=== PATIENT | female | born 1970 | race Caucasian/White ===

== ENCOUNTER 2017-09-28 13:54 | Emergency (ER) | payer OTHER ==
[2017-09-28] MEDS: HYDROcodone/APAP 5/325MG 1 TAB TABLET PO (16:21)
[2017-09-28] MEDS: hydrOXYzine PAMOATE 25 MG CAPSULE PO (16:22)
[2017-09-28 16:40] LABS: ADD MAN DIFF? NO
[2017-09-28 16:42] LABS: BASO % 0 % (0-3); EOS # 0.5 x10^3/uL (0.0-0.7); EOS % 6 % (0-3); HEMATOCRIT 42.2 % (36.0-47.0); HEMOGLOBIN 14.3 g/dL (12.0-15.5); LYMPH # 1.9 x10^3/uL (1.0-4.8); LYMPH % 22 % (24-48); MEAN CORPUSCULAR HEMOGLOBIN 31 pg (25-35); MEAN CORPUSCULAR HGB CONC 34 g/dL (31-37); MEAN CORPUSCULAR VOLUME 91 fL (79-100); MONO # 0.7 x10^3/uL (0.0-1.1); MONO % 9 % (0-9); NEUT # 5.3 x10^3uL (1.8-7.7); NEUT % 63 % (31-73); PLATELET COUNT 291 x10^3/uL (140-400); RED BLOOD COUNT 4.65 x10^6/uL (3.50-5.40); RED CELL DISTRIBUTION WIDTH 13.4 % (11.5-14.5); WHITE BLOOD COUNT 8.4 x10^3/uL (4.0-11.0)
[2017-09-28 16:51] LABS: ANION GAP 9 (6-14); BLOOD UREA NITROGEN 17 mg/dL (7-20); BUN/CREATININE RATIO 17 (6-20); CALCIUM 8.8 mg/dL (8.5-10.1); CARBON DIOXIDE 25 mmol/L (21-32); CHLORIDE 110 mmol/L (98-107); GFR 58.9; GLUCOSE 83 mg/dL (70-99); SODIUM 144 mmol/L (136-145)
[2017-09-28 16:56] LABS: ALBUMIN 2.9 g/dL (3.4-5.0); ALBUMIN/GLOBULIN RATIO 0.7 (1.0-1.7); ALK PHOS 75 U/L (46-116); ALT (SGPT) 38 U/L (14-59); AST (SGOT) 31 U/L (15-37); C-REACTIVE PROTEIN 14.6 mg/L (0-3.3); TOTAL BILIRUBIN 0.4 mg/dL (0.2-1.0); TOTAL PROTEIN 7.3 g/dL (6.4-8.2)
[2017-09-28] MEDS: DEXAMETHASONE SOD PHOS 4 MG/ML VIAL IV (17:20)
[2017-09-28 17:43] LABS: SEDIMENTATION RATE 33 (0-25)
== END 2017-09-28 18:31 | disposition home or self-care (01) ==
LOC: ER 13:54
DX: I87.2 Venous insufficiency (chronic) (peripheral) (principal); L03.115 Cellulitis of right lower limb; E03.9 Hypothyroidism, unspecified
CPT/HCPCS: 36415; 80053; 85025; 85651; 86140; 93971; 96365; 96375; 99285-25; J0690; J1100; Q0177